=== PATIENT | male | born 1960 | race Caucasian/White ===

== ENCOUNTER 2017-12-21 18:36 | Observation (INO) | payer OTHER ==
[~2017-12-21] VITALS: Ht 165.1 cm; Wt 103.7 kg
[~2017-12-21 18:36] MED LIST: AUGMENTIN 875-1 EACH PO
[2017-12-21 18:44] VITALS: BP 184/96
[2017-12-21 18:58] LABS: POC CA IONIZED 4.4 mg/dL (4.5-5.3); POC CREATININE 1.3 mg/dL (0.6-1.3); POC POTASSIUM 3.5 mmol/L (3.5-4.9)
[2017-12-21 19:02] LABS: ABSOLUTE EOSINOPHILS 0.1 thou/uL (0.0-0.7); ABSOLUTE LYMPHOCYTES 1.8 thou/uL (0.8-5.3); ABSOLUTE MONOCYTES 0.7 thou/uL (0.0-1.2); ABSOLUTE NEUTROPHILS 5.1 thou/uL (1.6-8.1); BASOPHILS 0.6 %; EOSINOPHILS 1.7 %; HEMATOCRIT 44.8 % (42.0-52.0); HEMOGLOBIN 15.2 gm/dL (14.0-18.0); LYMPHOCYTES 23.6 %; MCH 31.4 pg (26.0-34.0); MCHC 33.8 g/dL (28.0-37.0); MCV 92.7 fL (80.0-100.0); MONOCYTES 8.5 %; MPV 7.4 fl. (7.2-11.1); NUCLEATED RBCS 0 /100WBC; PLATELET COUNT* 252 thou/uL (150-400); POLYS 65.6 %; RBC 4.83 mil/uL (4.50-6.00); RDW-CV 13.3 % (10.5-14.5); WBC 7.8 thou/uL (4.0-11.0)
[2017-12-21 19:10] LABS: ANION GAP 10 mmol/L (7-16); BUN 17 mg/dL (7-18); CALCIUM 8.8 mg/dL (8.5-10.1); CHLORIDE 105 mmol/L (98-107); CO2 26 mmol/L (21-32); CREATININE 1.3 mg/dL (0.6-1.3); GLUCOSE 106 mg/dL (70-99); POTASSIUM 3.5 mmol/L (3.5-5.1); SODIUM 141 mmol/L (136-145)
[2017-12-21 19:17] LABS: ALBUMIN 4.1 g/dL (3.4-5.0); ALKALINE PHOSPHATASE 70 U/L (46-116); SGOT 19 U/L (15-37); SGPT 28 U/L (30-65); TOTAL PROTEIN 7.4 g/dL (6.4-8.2); TROPONIN-I LEVEL <0.06 ng/mL (<0.06)
[2017-12-21 19:40] LABS: APTT 25.4 Seconds (25.0-31.3)
--- NOTE | 2017-12-21 20:33 | NUR ---
SEE CODE STROKE FLOW SHEET FOR DOCUMENTATION
[2017-12-21 20:48] LABS: MAGNESIUM 2.2 mg/dL (1.8-2.4); PHOSPHORUS* 3.6 mg/dL (2.5-4.9)
[2017-12-21 21:25] VITALS: BP 123/77
[2017-12-21 21:40] VITALS: BP 141/94
[2017-12-21 23:58] VITALS: BP 131/88
--- NOTE | 2017-12-22 03:04 | NUR ---
PT ADMIT TO 2 W AT 2145. ALERT ORIENTED. NIHSS 0. SWALLOW SCREEN NORMAL. TELMETRY SHOWS SR. UP AD ULYSSES IN ROOM. GIRL FRIEND STAYING WITH PT. WILL CONTINUE TO [facility].
[2017-12-22 03:10] LABS: HEMATOCRIT 41.3 % (42.0-52.0); HEMOGLOBIN 14.2 gm/dL (14.0-18.0); MCH 31.2 pg (26.0-34.0); MCHC 34.3 g/dL (28.0-37.0); MCV 91.1 fL (80.0-100.0); MPV 7.5 fl. (7.2-11.1); RBC 4.53 mil/uL (4.50-6.00); RDW-CV 13.2 % (10.5-14.5); WBC 7.4 thou/uL (4.0-11.0)
[2017-12-22 03:32] LABS: ALBUMIN 3.3 g/dL (3.4-5.0); CALCIUM 8.5 mg/dL (8.5-10.1); CREATININE 1.2 mg/dL (0.6-1.3); POTASSIUM 3.7 mmol/L (3.5-5.1); TOTAL BILIRUBIN 0.9 mg/dL (<0.1-1.0); TOTAL PROTEIN 5.8 g/dL (6.4-8.2)
[2017-12-22 03:38] VITALS: BP 113/72
--- NOTE | 2017-12-22 07:45 | NUR ---
CHANGE OF SHIFT BEDSIDE REPORT GIVEN PATIENT SEEN IN BED AND RESTING ASSUMED PATIENT CARE
[2017-12-22 08:00] VITALS: BP 127/75
--- NOTE | 2017-12-22 11:36 | EKG ---
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 12/22/17 1136 05 05 Jose Martin Koch MD, FACC /EPI
[2017-12-22 12:00] VITALS: BP 132/81
[2017-12-22 14:24] VITALS: BP 132/81
--- NOTE | 2017-12-23 10:21 | NUR ---
ORDERS RECEIVED, HOWEVER PATIENT DC PRIOR TO P.T. TIM LÓPEZ,MPT
--- NOTE | 2017-12-28 13:48 | CON ---
[address] [address] CONSULTATION Name: BALDEMAR XAVIER Raghu Room: [address] Cherri Joshua#: [id number] Admission: 12/21/17 Attend Phys: Munir Diaz Discharge: 12/22/17 Date of : 60 Report #: [id number] THIS REPORT FOR: //name// CC: Prince Acharya DATE OF SERVICE: 12/21/2017 HISTORY OF PRESENT ILLNESS: This is a 57-year-old male patient who was evaluated because he had an acute onset of short-term memory problem. He continued to repeat the same thing. We took a lot of history and reviewed the records from Speech, disturbances was reported, but the patient's significant other is pretty adamant there was no speech difficulty, it just memory was not there. He hesitated some time to speak because no memory was there. There is some question of hemianopsia, which has never been documented. It is pretty clear whatever I can tell that it was a short-term memory problem. He never had this problem before. REVIEW OF SYSTEMS: Indicate he is not under any stress. He does drink alcohol. He drank some today. He is not a diabetic. I carried out his 14-point review of system is mostly unremarkable. PAST MEDICAL HISTORY: Negative for any stroke. FAMILY HISTORY: Negative for early age stroke. SOCIAL HISTORY: He does drink alcohol, but not excessively. PHYSICAL EXAMINATION: Indicate he is alert. He is responsive. He can follow commands. His speech looks clear, but he has very little short-term memory. He keeps repeating the same thing. His long-term memory looks preserved. Cranial nerve examination 2-12 is unremarkable. Neuromuscular examination is unremarkable. I could not look at the patient's fundus. There is no cerebellar sign. He is a very well developed individual who does not have any dysmorphic features of eyes, ears and face. Cardiac examination is unremarkable. Pulses are palpable. His blood pressure is 123/77, respirations 16, pulse is 94, temperature is 98.1. LABORATORY DATA: His white count is 7.8. He did have a CT angio, which is mostly unremarkable. IMPRESSION: The patient's clinical presentation is consistent with transient global amnesia. I discussed with the patient the diagnosis of presumptive. It can mimic stroke. I discussed his options in that regard, especially TPA. After discussing all of it, he wanted to stay without TPA and I think that is reasonable because this looks like transient global amnesia and [place] [address] CONSULTATION Name: BALDEMAR XAVIER Room: [address] Cherri Joshua#: [id number] Admission: 12/21/17 Attend Phys: Munir Diaz Discharge: 12/22/17 Date of : 60 Report #: [id number] perfusion is normal. RECOMMENDATIONS: 1. MRI of the brain tomorrow. 2. EEG tomorrow. 3. TSH. 4. Echo. 5. If all of it is okay probably send him home. Thank you very much for this referral. <ELECTRONICALLY SIGNED> By: Sreekanth Crespo MD 12/28/17 1348 2240 [id number] Crespo MD /nt
--- NOTE | 2017-12-28 13:48 | EEG ---
[address] [address] EEG STUDY REPORT Name: BALDEMAR XAVIER Room: [address] Cherri Joshua#: [id number] Admission: 12/21/17 Attend Phys: Munir Diaz Discharge: 12/22/17 Date of : 60 Report #: [id number] THIS REPORT FOR: //name// CC: Prince Acharya DATE OF SERVICE: 12/22/2017 This patient is being evaluated for transient global amnesia. EEG was done by placing the electrode by standard 10-20 system of electrode placement. Both referential and sequential montages were used for recording. Background activity in this patient's EEG is about 10 Hz and 30 microvolt. The patient went to sleep that is associated with bilateral slowing and vertex sharp waves. Photic stimulation is unremarkable. Throughout the record, no active epileptiform activity was noticed. IMPRESSION: This patient's electroencephalogram is within normal limits. Thank you very much for this referral. <ELECTRONICALLY SIGNED> By: Sreekanth Crespo MD 12/28/17 1348 2100 2144Pnia Crespo MD /nt
== END 2017-12-22 18:45 | disposition home or self-care (01) ==
LOC: M.ERS 18:36 → M.TBA-ER 20:37 → M.2W 20:37
PROVIDERS: Emergency Medicine; Family Medicine; ADMIT Internal Medicine
DX: G45.4 Transient global amnesia (principal); G45.9 Transient cerebral ischemic attack, unspecified; I72.9 Aneurysm of unspecified site; R41.82 Altered mental status, unspecified; Z90.89 Acquired absence of other organs; Z72.89 Other problems related to lifestyle

== ENCOUNTER → 2019-05-16 | Outpatient (CLI) | payer OTHER ==
--- NOTE | 2019-05-16 16:52 | EXE ---
[place] [address] STRESS ECHOCARDIOGRAM Name: BALDEMAR XAVIER Raghu Room: [facility]#: [id number] Admission: 05/16/19 Attend Phys: Jose Martin Koch MD Discharge: Date of : 60 Date of Service: 05/16/19 165 Report #: [id number] THIS REPORT FOR: //name// APPROVED REPORT Study performed: 05/16/2019 15:31:22 Exam: Stress Echocardiogram Indication: Dyspnea Patient Location: Out-Patient Stress Nurse: Sara Menjivar RN Supervising Physician: Dylan Rubio MD Ht: 5 ft 10 in HR: 78 bpm BP: 143/92 mmHg Medical History Cardiac Risk Factors: FHX of CAD, Tobacco History (Former) Procedure The patient underwent an Exercise Stress Test using the Cristo Protocol. Blood pressure, heart rate, and EKG were monitored. An Echocardiogram was performed by computer support technician in four stages in quad fashion. At peak stress, four selected images were obtained and placed side by side with resting images for comparison. Stress Test Details Stress Test: Exercise stress testing was performed using a Cristo protocol. HR Resting HR: 78 bpm Max Heart Rate (APMHR): 162 bpm Max HR Achieved: 169 bpm Target HR (85% APMHR): 137 bpm % of APMHR: 104 Recovery HR: 106 bpm HR response to stress: Normal HR response to stress BP Resting BP: 143/92 mmHg Max BP: 212/87 mmHg Recovery BP: 144/108 mmHg BP response to stress: Abnormal hypertensive response to stress. ECG Resting ECG: [place] [address] STRESS ECHOCARDIOGRAM Name: BALDEMAR XAVIER Room: [facility]#: [id number] Admission: 05/16/19 Attend Phys: Jose Martin Koch MD Discharge: Date of : 60 Date of Service: 05/16/19 1652 Report #: [id number] Stress ECG: Sinus Tachycardia ST Change: None Arrhythmia: None Recovery ECG: Sinus Rhythm Recovery ST Change: None Recovery Arrhythmia: None Clinical Reason for Termination: Completed protocol Exercise duration: 8 min sec Highest Stage Achieved: Stage 3: 3.4 mph at 14% grade. Exercise capacity: 10.14 METs The patient tolerated stent Cristo protocol exercise without significant cardiac symptoms. Patient exhibited fair exercise tolerance. Stress ECG Conclusion The baseline 12-lead EKG shows sinus rhythm without significant ST or T wave abnormality. EKGs obtained during and post exercise stress show sinus rhythm and sinus tachycardia with no significant ST or T wave changes when compared to baseline. There were no stress-induced arrhythmias. Pre-Stress Echo The resting Echocardiogram showed normal left ventricular contractility with an estimated Ejection Fraction of about 55-60%. Normal wall motion in all segments on baseline images. Post-Stress Echo The stress Echocardiogram showed normal left ventricular contractility with an estimated Ejection Fraction of about %. Normal augmentation of wall motion in all segments on post stress images. Conclusion Clinical Response: Non-ischemic Exercise Capacity: Average Stress ECG Response: Non-ischemic Stress Echo Images: [place] [address] STRESS ECHOCARDIOGRAM Name: BALDEMAR XAVIER Raghu Room: [facility]#: [id number] Admission: 05/16/19 Attend Phys: Jose Martin Koch MD Discharge: Date of : 60 Date of Service: 05/16/191651 Report #: [id number] Other Information Study Quality: Fair <ELECTRONICALLY SIGNED> By: Baldomero Flor MD, FACC 05/16/191651 51 51 Baldomero Flor MD, FACC /INF
--- NOTE | 2019-05-18 08:30 | TST ---
[place] [address] TREADMILL STRESS TEST Name: DUCBALDEMAR Room: [facility]#: [id number] Admission: 05/16/19 Attend Phys: Jose Martin Koch MD Discharge: Date of : 60 Date of Service: 05/16/19 1648 Report #: [id number] THIS REPORT FOR: //name// CC: David Ha MD [facility] INDICATION: Dyspnea. CARDIAC RISK FACTORS: Coronary artery disease, age greater than 45, tobacco use with cessation 8 years ago and family history of coronary artery disease. CARDIAC MEDICATIONS: None. The patient exercised per standard Cristo protocol for 8 minutes. The patient achieved 104% of the maximum predicted heart rate and an energy expenditure equivalent to 10.14 METS. The baseline heart rate was 78 beats per minute with a blood pressure of 143/92 mmHg. At peak exercise, the heart rate was 169 beats per minute with a blood pressure of 212/87 mmHg. At recovery, the heart rate was 106 beats per minute with a recovery blood pressure of 144/108 mmHg. The patient tolerated exercise well and without significant cardiac symptoms. The baseline 12-lead EKG shows sinus rhythm without significant ST or T-wave abnormality. EKGs obtained during and post-exercise shows sinus rhythm and sinus tachycardia with no significant ST or T-wave changes when compared to baseline. There were no significant stress-induced arrhythmias. CONCLUSION: 1. Clinical response, nonischemic. 2. EKG response, nonischemic. CONCLUSION: The standard Cristo protocol exercise stress test shows no EKG or clinical evidence to suggest stress-induced ischemia. The patient exhibited good exercise tolerance. <ELECTRONICALLY SIGNED> By: Baldomero Flor MD, FACC 05/18/19 0830 1648 51 Baldomero Flor MD, FACC /nt
== END ==
LOC: M.CRD 14:54
DX: I25.10 Atherosclerotic heart disease of native coronary artery without angina pectoris (principal); R06.02 Shortness of breath; Z87.891 Personal history of nicotine dependence